=== PATIENT | male | born 1985 | race Two or more races ===

== ENCOUNTER 2017-07-05 14:33 | Emergency (ER) | payer BC ==
[~2017-07-05] VITALS: Ht 165.1 cm; Wt 66.2 kg
[2017-07-05] MEDS ORDERED: IV NORMAL SALINE 1000ML BAG 1,000 ML IV ONE (15:00)
[2017-07-05 15:04] LABS: BILIRUBIN,URINE NEGATIVE (NEG); GLUCOSE,URINE NEGATIVE (NEG); NITRITE,URINE NEGATIVE (NEG); PROTEIN,URINE 30 mg/dL (NEG-TRACE); UROBILINOGEN,URINE 0.2 mg/dL (0.2 mg/dL)
[2017-07-05 15:14] LABS: BACTERIA,URINE 0 /HPF (0-FEW); SQUAMOUS EPITHELIAL CELL,UR OCC /LPF; WBC,URINE 0 /HPF (0-4)
[2017-07-05] MEDS ORDERED: ONDANSETRON PF 4 MG/2 ML VIAL. IV ONE (15:15)
[2017-07-05] MEDS ORDERED: diazePAM 5 MG TABLET PO ONE (15:15)
[2017-07-05] MEDS ORDERED: KETOROLAC 30 MG/ML INJ. IV ONE (15:15)
[2017-07-05 15:27] LABS: BASO % 1 % (0-3); EOS % 1 % (0-3); HEMATOCRIT 41.3 % (39.0-53.0); HEMOGLOBIN 14.1 g/dL (13.0-17.5); LYMPH # 1.6 x10^3/uL (1.0-4.8); LYMPH % 27 % (24-48); MEAN CORPUSCULAR HEMOGLOBIN 32 pg (25-35); MEAN CORPUSCULAR HGB CONC 34 g/dL (31-37); MEAN CORPUSCULAR VOLUME 93 fL (79-100); MONO % 8 % (0-9); NEUT % 62 % (31-73); PLATELET COUNT 246 x10^3/uL (140-400); RED BLOOD COUNT 4.45 x10^6/uL (4.30-5.70); RED CELL DISTRIBUTION WIDTH 13.1 % (11.5-14.5); WHITE BLOOD COUNT 5.7 x10^3/uL (4.0-11.0)
--- NOTE | 2017-07-05 15:33 | PHYS DOC ---
Adult General Chief Complaint Chief Complaint: FLANK PAIN HPI HPI Patient is a 32 year old male presenting to the emergency department for evaluation of left flank pain that started yesterday and has persisted. He said that it radiates towards his left lower quadrant and causes him some nausea and he has had more difficulty and urinating. He says that he took an Advil this morning but it did not help. He feels some chills but he has not had any fevers. He said that he had a ERCP 3 weeks ago and is concerned this may have something to do with his pain. He is in no obvious distress with normal vital signs. Review of Systems Review of Systems Constitutional: Denies fever. + chills [] Eyes: Denies change in visual acuity, redness, or eye pain [] HENT: Denies nasal congestion or sore throat [] Respiratory: Denies cough or shortness of breath [] Cardiovascular: No additional information not addressed in HPI [] GI: + abdominal pain, nausea. No vomiting, bloody stools or diarrhea [] : Denies dysuria or hematuria [] Musculoskeletal: + back pain. Integument: Denies rash or skin lesions [] Neurologic: Denies headache, focal weakness or sensory changes [] Current Medications Current Medications Current Medications Medications (Trade) Dose Ordered Sig/Sonny Start Time Stop Time Status Last Admin Dose Admin Diazepam (Valium) 5 mg 1X ONCE 07/05/17 15:15 07/05/17 15:16 DC 07/05/17 15:32 5 MG Ketorolac Tromethamine (Toradol) 30 mg 1X ONCE 07/05/17 15:15 07/05/17 15:16 DC 07/05/17 15:30 30 MG Morphine Sulfate 10 mg STK-MED ONCE 07/05/17 16:10 07/05/17 16:11 DC Ondansetron HCl (Zofran) 8 mg 1X ONCE 07/05/17 15:15 07/05/17 15:16 DC 07/05/17 15:30 8 MG Sodium Chloride 1,000 ml @ 1,000 mls/hr 1X ONCE 07/05/17 15:00 07/05/17 15:59 DC 07/05/17 15:29 1,000 MLS/HR Allergies Allergies Allergies Coded Allergies Type Severity Reaction Last Updated Verified Penicillins Allergy Intermediate 07/05/17 Yes Physical Exam Physical Exam Constitutional: Well developed, well nourished, no acute distress, non-toxic appearance. [] HENT: Normocephalic, atraumatic, bilateral external ears normal, oropharynx moist, no oral exudates, nose normal. [] Eyes: PERRLA, EOMI, conjunctiva normal, no discharge. [] Neck: Normal range of motion, no tenderness, supple, no stridor. [] Cardiovascular:Heart rate regular rhythm, no murmur [] Lungs & Thorax: Bilateral breath sounds clear to auscultation [] Abdomen: Bowel sounds normal, soft, no tenderness, no masses, no pulsatile masses. [] Skin: Warm, dry, no erythema, no rash. [] Back: No tenderness, + L CVA tenderness. [] Extremities: No tenderness, no cyanosis, no clubbing, ROM intact, no edema. [] Neurologic: Alert and oriented X 3, normal motor function, normal sensory function, no focal deficits noted. [] Current Patient Data Vital Signs Vital Signs Date Time Temp Pulse Resp B/P (MAP) Pulse Ox O2 Delivery O2 Flow Rate FiO2 07/05/17 16:15 82 16 105/69 (81) 98 Room Air 07/05/17 14:48 98.3 98.3 Lab Values Laboratory Tests Test 07/05/17 14:48 07/05/17 15:20 Urine Collection Type Void Urine Color Dk yellow Urine Clarity Clear Urine pH 6.0 Urine Specific [place] >=1.030 Urine Protein 30 mg/dL (NEG-TRACE) Urine Glucose (UA) Negative mg/dL (NEG) Urine Ketones (Stick) Trace mg/dL (NEG) Urine Blood Small (NEG) Urine Nitrite Negative (NEG) Urine Bilirubin Negative (NEG) Urine Urobilinogen Dipstick 0.2 mg/dL (0.2 mg/dL) Urine Leukocyte Esterase Negative (NEG) Urine RBC 1-2 /HPF (0-2) Urine WBC 0 /HPF (0-4) Urine Squamous Epithelial Cells Occ /LPF Urine Bacteria 0 /HPF (0-FEW) Urine Mucus Marked /LPF White Blood Count 5.7 x10^3/uL (4.0-11.0) Red Blood Count 4.45 x10^6/uL (4.30-5.70) Hemoglobin 14.1 g/dL (13.0-17.5) Hematocrit 41.3 % (39.0-53.0) Mean Corpuscular Volume 93 fL (79-100) Mean Corpuscular Hemoglobin 32 pg (25-35) Mean Corpuscular Hemoglobin Concent 34 g/dL (31-37) Red Cell Distribution Width 13.1 % (11.5-14.5) Platelet Count 246 x10^3/uL (140-400) Neutrophils (%) (Auto) 62 % (31-73) Lymphocytes (%) (Auto) 27 % (24-48) Monocytes (%) (Auto) 8 % (0-9) Eosinophils (%) (Auto) 1 % (0-3) Basophils (%) (Auto) 1 % (0-3) Neutrophils # (Auto) 3.5 x10^3uL (1.8-7.7) Lymphocytes # (Auto) 1.6 x10^3/uL (1.0-4.8) Monocytes # (Auto) 0.5 x10^3/uL (0.0-1.1) Eosinophils # (Auto) 0.1 x10^3/uL (0.0-0.7) Basophils # (Auto) 0.0 x10^3/uL (0.0-0.2) Sodium Level 143 mmol/L (136-145) Potassium Level 4.0 mmol/L (3.5-5.1) Chloride Level 106 mmol/L (98-107) Carbon Dioxide Level 27 mmol/L (21-32) Anion Gap 10 (6-14) Blood Urea Nitrogen 15 mg/dL (8-26) Creatinine 0.9 mg/dL (0.7-1.3) Estimated GFR (Cockcroft-Gault) 99.1 BUN/Creatinine Ratio 17 (6-20) Glucose Level 108 mg/dL (70-99) H Calcium Level 9.2 mg/dL (8.5-10.1) Magnesium Level 2.2 mg/dL (1.8-2.4) Total Bilirubin 0.3 mg/dL (0.2-1.0) Aspartate Amino Transferase (AST) 23 U/L (15-37) Alanine Aminotransferase (ALT) 41 U/L (16-63) Alkaline Phosphatase 103 U/L (46-116) Creatine Kinase 64 U/L (39-308) Total Protein 8.5 g/dL (6.4-8.2) H Albumin 4.6 g/dL (3.4-5.0) Albumin/Globulin Ratio 1.2 (1.0-1.7) Lipase 249 U/L (73-393) Laboratory Tests 07/05/17 15:20 Laboratory Tests 07/05/17 15:20 EKG EKG [] Radiology/Procedures Radiology/Procedures CT ABDOMEN PELVIS WO CONTRAST dated 07/05/2017 4:20 PM Indication: Left flank pain, pain for 3 days pain. Comparison: No comparison is available. Technique: Contiguous axial imaging of the abdomen and pelvis performed without the administration of intravenous contrast. One or more of the following individualized dose reduction techniques were utilized for this examination: 1. Automated exposure control 2. Adjustment of the mA and/or kV according to patient size 3. Use of iterative reconstruction technique Findings: Limited images of lung bases are clear. Heart size within normal limits. No pleural or pericardial effusion. Solid abdominal viscera not well evaluated in the absence of contrast material. No apparent attenuation abnormality of the liver or spleen. Gallbladder surgically absent. Pancreas, adrenal glands and kidneys are unremarkable. No stone or hydronephrosis. Unopacified GI tract is normal in caliber and contour. No focal bowel wall thickening. No inflammatory stranding in the mesentery. The appendix is not clearly identified. No inflammatory changes in the right lower quadrant. Images of the pelvis a nondistended urinary bladder. No calcific bladder stone. Prostate gland normal in size. No free pelvic fluid or pelvic lymphadenopathy. Bone windows show no acute findings. Mild multilevel spondylosis. IMPRESSION: 1. No acute abnormality of abdomen or pelvis. No evidence of stone or hydronephrosis. Electronically signed by: Malik Pulido MD (07/05/2017 5:16 PM) [facility] DICTATED and SIGNED BY: MALIK PULIDO MD DATE: 07/05/17 3644 Course & Med Decision Making Course & Med Decision Making Patient with possible kidney stone symptoms. Will check labs treat symptoms and reassess. Patient has negative laboratory and CT scan assessment. His urine is somewhat concentrated so I told him he needs to drink more fluids. Patient says that he needs a prescription for something for pain. I asked him if he is taking any prescription medications for pain and he said no that he is taking his Advil. I looked up his [facility] report and appears that he has had 14 prescribers with 9 different pharmacies in the past 3 months. He has been to [facility] 4 days ago and he follows with Dr. Diaz as his primary care provider. I told him he has an opioid dependence issue and he needs to seek help for this. He does not seem Interested in my advice and said that he does not like any of the prescriptions are written for him as they'll make him feel sick. Patient has been lying about his prescriptions and I told him not to lie about his prescriptions to any medical care provider ever again. Patient discharged in stable condition. Dragon Disclaimer Dragon Disclaimer This electronic medical record was generated, in whole or in part, using a voice recognition dictation system. Departure Departure Impression: Primary Impression: Left flank pain Additional Impressions: Dehydration Drug-seeking behavior Disposition: 01 HOME, SELF-CARE Condition: STABLE Referrals: HANNAH DIAZ (PCP) Patient Instructions: Flank Pain Problem Qualifiers HANNAH ONTIVEROS DO Jul 05, 2017 15:33
[2017-07-05 15:45] LABS: CALCIUM 9.2 mg/dL (8.5-10.1); CREATININE 0.9 mg/dL (0.7-1.3); GFR 99.1
[2017-07-05 15:57] LABS: ALBUMIN 4.6 g/dL (3.4-5.0); ALBUMIN/GLOBULIN RATIO 1.2 (1.0-1.7); MAGNESIUM 2.2 mg/dL (1.8-2.4); TOTAL BILIRUBIN 0.3 mg/dL (0.2-1.0); TOTAL PROTEIN 8.5 g/dL (6.4-8.2)
[2017-07-05] MEDS ORDERED: MORPHINE SULFATE 10 MG/ML VIAL. ONE (16:10)
[2017-07-05 16:15] VITALS: BP 105/69
[2017-07-05] MEDS ORDERED: MORPHINE SULFATE 10 MG/ML VIAL. IV ONE (16:30)
--- NOTE | 2017-07-05 17:19 | RAD ---
CT ABDOMEN PELVIS WO CONTRAST dated 07/05/2017 4:20 PM Indication: Left flank pain, pain for 3 days pain. Comparison: No comparison is available. Technique: Contiguous axial imaging of the abdomen and pelvis performed without the administration of intravenous contrast. One or more of the following individualized dose reduction techniques were utilized for this examination: 1. Automated exposure control 2. Adjustment of the mA and/or kV according to patient size 3. Use of iterative reconstruction technique Findings: Limited images of lung bases are clear. Heart size within normal limits. No pleural or pericardial effusion. Solid abdominal viscera not well evaluated in the absence of contrast material. No apparent attenuation abnormality of the liver or spleen. Gallbladder surgically absent. Pancreas, adrenal glands and kidneys are unremarkable. No stone or hydronephrosis. Unopacified GI tract is normal in caliber and contour. No focal bowel wall thickening. No inflammatory stranding in the mesentery. The appendix is not clearly identified. No inflammatory changes in the right lower quadrant. Images of the pelvis a nondistended urinary bladder. No calcific bladder stone. Prostate gland normal in size. No free pelvic fluid or pelvic lymphadenopathy. Bone windows show no acute findings. Mild multilevel spondylosis. IMPRESSION: 1. No acute abnormality of abdomen or pelvis. No evidence of stone or hydronephrosis. Electronically signed by: Malik Pulido MD (07/05/2017 5:16 PM) [facility]
== END 2017-07-05 17:55 | disposition home or self-care (01) ==
LOC: ER 14:33
DX: R10.9 Unspecified abdominal pain (principal); E86.0 Dehydration; R11.0 Nausea; R30.0 Dysuria; Z88.0 Allergy status to penicillin; Z76.5 Malingerer [conscious simulation]
CPT/HCPCS: 36415; 74176; 80053; 81001; 82550; 83690; 83735; 85025; 96361; 96374; 96375; 99285; J1885; J2270; J2405; J7030